=== PATIENT | female | born 1940 | race Caucasian/White ===

== ENCOUNTER 2016-11-09 16:05 | Emergency (ER) | payer MEDICARE ==
[~2016-11-09] VITALS: Ht 165.1 cm; Wt 68.0 kg
[~2016-11-09 16:05] MED LIST: DILA100C PO; HALO0.5T PO; KEPP1000 PO; LEVE750T8 PO; LORA0.5T PO; PHEN100 PO; POLYPOW; SERO100T PO; STOO100T PO; TAB-TAB PO; TRAZ50TA4 PO; VITA500C PO
[2016-11-09 16:08] VITALS: BP 154/72; PULSE 77; RESP 20; TEMP 98.7; O2SAT 95
--- NOTE | 2016-11-09 16:35 | PD ---
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 SENT FOR FURTHER EVALUATION...PER STAFF NO SEIZURE ACTIVITY AND IT WAS A MECHANICAL FALL WITHOUT LOC PFSH Past Medical History Arthritis: No Asthma: No Blood Disorders: No Anxiety: Yes Heart Rhythm Problems: No Cancer: No Cardiovascular Problems: No High Cholesterol: No Chemotherapy: No Chest Pain: No Congestive Heart Failure: No COPD: No Cerebrovascular Accident: No Diabetes: No Diminished Hearing: Yes Endocrine: No Gastrointestinal Disorders: Yes (CHRONIC CONSTIPATION) GERD: No Genitourinary: No Headaches: Yes (ocassionally) Hepatitis: No Hiatal Hernia: No Immune Disorder: No Kidney Stones: No Musculoskeletal: No Neurologic: Yes (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) Psychiatric: Yes (03/25/04-03/25/04,09/23/08-10/01/08, 05/17/09-05/18/09) Reproductive: No Respiratory: Yes Migraines: No Myocardial Infarction: No Pneumonia: Yes Radiation Therapy: No Renal Failure: No Seizures: Yes (history of benign brain tumor) Sleep Apnea: No Ulcer: No Menopausal: Yes : 1 Para: 0 Dilation and Curettage (D&C): Yes Past Surgical History Abdominal Surgery: Yes Appendectomy: Yes Cardiac Surgery: No Cholecystectomy: No Ear Surgery: No Eye Surgery: No Genitourinary Surgery: No Gynecologic Surgery: Yes Oral Surgery: No Thoracic Surgery: No Other Surgery: Yes (REMOVAL BENIGN TUMORS, BREAST) Social History Alcohol Use: No Tobacco Use: No Substance Use: No Allergies-Medications (Allergen,Severity, Reaction): Coded Allergies: *MDRO Multi-Drug Resistant Organism (Unverified Adverse Reaction, Unknown , 11/09/16) MRSA Reported Meds & Prescriptions Reported Meds & Active Scripts Active Reported Gavilax (Polyethylene Glycol 3350) Pow DIRECTED 17GM IN WATER Lorazepam 0.5 Mg Tab 0.5 Mg PO TID Dilantin Kapseals (Phenytoin Sodium) 100 Mg Cap 100 Mg PO BID Keppra (Levetriacetam) 750 Mg Tab 1,500 Mg PO HS Keppra (Levetiracetam) 1,000 Mg Tab 1,000 Mg PO AM PRN Seroquel 100 mg (Quetiapine Fumarate) 100 Mg Tab 100 Mg PO TID Haldol (Haloperidol) 0.5 Mg Tab 0.5 Mg PO TID Trazodone Hcl (Trazodone HCl) 50 Mg Tab 50 Mg PO HS Trazodone Hcl (Trazodone HCl) 50 Mg Tab 50 Mg PO DAILY Dilantin 100 Mg Kapseals (Phenytoin Sodium) 100 Mg Caper 100 Mg PO Q12H Stool Softener-Docusate (Docusate Sodium) Unknown Strength Cap Unknown Dose PO DAILY Vitamin C (Ascorbic Acid) 500 Mg Chw 500 Mg PO DAILY Multivitamin (Multivitamins) 1 Tab Tab 1 Tab PO DAILY Review of Systems Except as stated in HPI: all other systems reviewed are Neg Musculoskeletal: Positive: Pain (RT HUMERUS) Physical Exam Narrative GENERAL: SKIN: Warm and dry. HEAD: Atraumatic. Normocephalic. EYES: Pupils equal and round. No scleral icterus. No injection or drainage. ENT: No nasal bleeding or discharge. Mucous membranes pink and moist. NECK: Trachea midline. No JVD. CARDIOVASCULAR: Regular rate and rhythm. RESPIRATORY: No accessory muscle use. Clear to auscultation. Breath sounds equal bilaterally. GASTROINTESTINAL: Abdomen soft, non-tender, nondistended. Hepatic and splenic margins not palpable. MUSCULOSKELETAL: Extremities without clubbing, cyanosis, or edema. No obvious deformities. TTP AT RIGHT HUMERUS REGION, STRONG PULSES DISTALLY SKIN INTACT NEUROLOGICAL: Awake and PLEASANTLY CONFUSED.... No obvious cranial nerve deficits. Motor grossly within normal limits. Five out of 5 muscle strength in the arms and legs. Normal speech. PSYCHIATRIC: Appropriate mood and affect; insight and judgment normal. Data Data Last Documented VS Vital Signs Date Time Temp Pulse Resp B/P Pulse Ox O2 Delivery O2 Flow Rate FiO2 11/09/16 16:08 98.7 77 20 154/72 95 Room Air Orders Complete Blood Count With Diff (11/09/16 16:24) Basic Metabolic Panel (Bmp) (11/09/16 16:24) Prothrombin Time / Inr (Pt) (11/09/16 16:24) Act Partial Throm Time (Ptt) (11/09/16 16:24) Valproic Acid (Depakene) (11/09/16 16:24) Phenytoin (Dilantin) (11/09/16 16:24) Chest, Single Ap (11/09/16 16:24) Ct Brain W/O Iv Contrast(Rout) (11/09/16 16:24) Pelvis, Ap Only (Routine) (11/09/16 16:24) Humerus (Min 2vws) (11/09/16 ) Morphine Inj (Morphine Inj) (11/09/16 17:15) Phenytoin Inj (Dilantin Inj) (11/09/16 18:00) Splint Or Brace Apply/Monitor (11/09/16 17:46) Ns (Bolus) Inj (11/09/16 18:00) Labs Laboratory Tests Test 11/09/16 16:55 White Blood Count 8.8 TH/MM3 Red Blood Count 3.72 MIL/MM3 Hemoglobin 11.2 GM/DL Hematocrit 33.5 % Mean Corpuscular Volume 89.8 FL Mean Corpuscular Hemoglobin 30.0 PG Mean Corpuscular Hemoglobin 33.4 % Concent Red Cell Distribution Width 14.2 % Platelet Count 311 TH/MM3 Mean Platelet Volume 8.5 FL Neutrophils (%) (Auto) 88.6 % Lymphocytes (%) (Auto) 3.5 % Monocytes (%) (Auto) 7.5 % Eosinophils (%) (Auto) 0.0 % Basophils (%) (Auto) 0.4 % Neutrophils # (Auto) 7.8 TH/MM3 Lymphocytes # (Auto) 0.3 TH/MM3 Monocytes # (Auto) 0.7 TH/MM3 Eosinophils # (Auto) 0.0 TH/MM3 Basophils # (Auto) 0.0 TH/MM3 CBC Comment DIFF FINAL Differential Comment Prothrombin Time 12.0 SEC Prothromb Time International 1.1 RATIO Ratio Activated Partial 24.3 SEC Thromboplast Time Sodium Level 126 MEQ/L Potassium Level 4.2 MEQ/L Chloride Level 91 MEQ/L Carbon Dioxide Level 25.9 MEQ/L Anion Gap 9 MEQ/L Blood Urea Nitrogen 1 MG/DL Creatinine 0.60 MG/DL Estimat Glomerular Filtration 97 ML/MIN Rate Random Glucose 151 MG/DL Calcium Level 8.2 MG/DL Phenytoin (Dilantin) Level 5.7 MCG/ML Valproic Acid (Depakene) Level 60 MCG/ML MDM Medical Decision Making Medical Screen Exam Complete: Yes Emergency Medical Condition: Yes Medical Record Reviewed: Yes Differential Diagnosis ICH V SKULL FX V HUMERUS FX V RIB FX V PELVIC FX V DEPAKOTE/DILANTIN TOXICITY V ELECTROLYTE ABNL Narrative Course PATIENT WAS FOUND TO HAVE A PROXIMAL HUMERAL FX WHICH IS IMPACTED AND WILL NOT REQUIRE SURGICAL REPAIR WILL PLACE IN SLING AND SWATH....SLIGHT SUBTHERAPEUTIC DILANTIN WILL PARTIALLY LOAD IVX1, ALSO FOUND TO HAVE SOME HYPONATREMIA WILL REPLACE WITH NS IVF. PATIENT IS OTHERWISE STABLE AND CAN RETURN TO [facility]ARE. Diagnosis Primary Impression: PROXIMAL HUMERUS FRACTURE (RIGHT) Additional Impressions: MILD NONSYMPTOMATIC HYPONATREMIA S/P REPLACEMENT SUBTHERAPEUTIC DILANTIN S/P PARTIAL LOADING Referrals: Andrew Dotson MD Patient Instructions: General Instructions, Proximal Humerus Fracture (ED) Disposition: 01 DISCHARGE HOME Condition: Stable Kervin Florentino MD Nov 09, 2016 16:35
[2016-11-09] MEDS ORDERED: MORPHINE SULFATE 4 MG/ML INJ IV PUSH ONE (17:15)
[2016-11-09 17:19] LABS: AUTOMATED NEUTROPHIL # 7.8 TH/MM3 (1.8-7.7); BASOPHIL % 0.4 % (0.0-2.0); HEMATOCRIT 33.5 % (35.0-46.0); HEMO FLAGS DIFF FINAL; LYMPH % 3.5 % (9.0-44.0); LYMPHOCYTE # 0.3 TH/MM3 (1.0-4.8); MEAN CELL VOLUME 89.8 FL (80.0-100.0); MEAN CORPUSCULAR HGB CONC 33.4 % (32.0-36.0); MONO % 7.5 % (0.0-8.0); NEUT % 88.6 % (16.0-70.0); PLATELET COUNT 311 TH/MM3 (150-450); RED BLOOD COUNT 3.72 MIL/MM3 (4.00-5.30); RED CELL DISTRIBUTION WIDTH 14.2 % (11.6-17.2); WHITE BLOOD COUNT 8.8 TH/MM3 (4.0-11.0)
[2016-11-09 17:27] LABS: APTT (PATIENT) 24.3 SEC (24.3-30.1); INTERNATIONAL NORMALIZED RATIO 1.1 RATIO
--- NOTE | 2016-11-09 17:45 | RADRPT ---
EXAM DATE/TIME: 11/09/2016 17:21 [facility] COMPARISON: No previous studies available for comparison. INDICATIONS : Fall, complains of right shoulder pain. MEDICAL HISTORY : None. SURGICAL HISTORY : None. ENCOUNTER: Initial ACUITY: 1 day PAIN SCORE: 10/10 LOCATION: Right humerus FINDINGS: There is a fracture of the proximal humerus at the surgical neck. The shaft is medially mildly displa jacklyn. The glenohumeral joint is normally aligned. CONCLUSION: Right proximal humeral fracture. Eddie Ruffin MD on November 09, 2016 at 17:42 Board Certified Radiologist. This report was verified electronically.
--- NOTE | 2016-11-09 17:47 | RADRPT ---
EXAM DATE/TIME: 11/09/2016 17:24 [facility] COMPARISON: CHEST SINGLE AP, May 06, 2014, 5:41. INDICATIONS : Fall MEDICAL HISTORY : None. SURGICAL HISTORY : None. ENCOUNTER: Initial ACUITY: 1 day PAIN SCORE: 10/10 LOCATION: Bilateral chest FINDINGS: The heart size is enlarged. There are calcified granulomas in the right upper lung. Lungs appear othe rwise grossly clear There is dense calcification seen over the right base likely related to pleural c alcifications. There is minimal blunting of the costophrenic angles. Small effusions cannot be exclud ed. There is a fracture at the proximal right humeral shaft at the surgical neck. CONCLUSION: 1. Cardiomegaly. 2. No acute cardiopulmonary process. 3. Right proximal humeral fracture. Eddie Ruffin MD on November 09, 2016 at 17:43 Board Certified Radiologist. This report was verified electronically.
[2016-11-09 17:50] LABS: BICARBONATE 25.9 MEQ/L (21.0-32.0); POTASSIUM 4.2 MEQ/L (3.5-5.1)
[2016-11-09] MEDS ORDERED: PHENYTOIN INJ 250 MG/5 ML VIAL IV ONE (18:00)
[2016-11-09] MEDS ORDERED: SODIUM CHLORID 0.9% 500 ML INJ 500 ML IV ONE (18:00)
[2016-11-09] MEDS ORDERED: SODIUM CHLOR 0.9% 1000 ML INJ 1,000 ML IV ONE (18:00)
--- NOTE | 2016-11-09 18:00 | RADRPT ---
EXAM DATE/TIME: 11/09/2016 17:19 [facility] COMPARISON: PELVIS AP ONLY, January 14, 2015, 15:28. INDICATIONS : Fall MEDICAL HISTORY : None. SURGICAL HISTORY : None. ENCOUNTER: Initial ACUITY: 1 day PAIN SCORE: 10/10 LOCATION: pelvis FINDINGS: A single frontal view of the pelvis demonstrates no evidence of fracture. The bony pelvic ring is in tact. Bony mineralization is normal. The soft tissues are intact. Calcified fibroid on the right, s table CONCLUSION: 1. No acute findings on pelvis radiograph. Tarik Rutledge MD on November 09, 2016 at 17:56 Board Certified Radiologist. This report was verified electronically.
--- NOTE | 2016-11-09 18:05 | RADRPT ---
EXAM DATE/TIME: 11/09/2016 17:34 [facility] COMPARISON: CT BRAIN W/O CONTRAST, March 15, 2014, 16:00. CT BRAIN W/O CONTRAST, May 10, 2013, 17:28. CT BRAIN W/O CONTRAST, May 06, 2014, 6:21. CT BRAIN W/O CONTRAST, May 09, 2014, 15:09. CT BR AIN W/O CONTRAST, January 14, 2015, 15:56. INDICATIONS : Trauma. Fall. Right sided head contusion. RADIATION DOSE: 32.88 CTDIvol (mGy) MEDICAL HISTORY : Seizures. Benign brain tumor. SURGICAL HISTORY : None. ENCOUNTER: Initial ACUITY: 1 day PAIN SCALE: 7/10 LOCATION: Right cranial TECHNIQUE: Multiple contiguous axial images were obtained of the head. Using automated exposure control and adj ustment of the mA and/or kV according to patient size, radiation dose was kept as low as reasonably a chievable to obtain optimal diagnostic quality images. DICOM format image data is available electro nically for review and comparison. FINDINGS: CEREBRUM: There continue to be multiple calcified masses seen. The largest area seen in the posterior medial ri ght parietal lobe measuring 2.2 cm. There is a 1.7 cm calcified mass of the posterior right temporal lobe, a 0.6 cm calcified mass in the medial right frontal lobe, a 0.5 cm calcified area in the left o ccipital lobe, and some punctate calcifications in the left paraventricular region. There is persiste nt encephalomalacia at the left frontal lobe and anterior left temporal lobe. The ventricles and michael ical sulci are widened. The ventricles appear widened at proportion to the sulcal widening. No evid ence of midline shift, mass lesion, hemorrhage or acute infarction. No extra-axial fluid collections are seen. POSTERIOR FOSSA: The cerebellum and brainstem are intact. The 4th ventricle is midline. The cerebellopontine angle i s unremarkable. EXTRACRANIAL: The visualized portion of the orbits is intact. SKULL: The calvaria is intact. No evidence of acute skull fracture. There is evidence of a prior fracture a t the right occipital bone. Is present on multiple prior CT examinations. CONCLUSION: 1. No acute intracranial abnormality. 2. Atrophy. The ventricles are dilated out of proportion to the sulcal widening which can suggest nor mal pressure hydrocephalus in the correct clinical situation. 3. Persistent numerous calcified masses without edema. These are unchanged in size or number. 4. Areas of encephalomalacia that were seen previously in the left frontal and left temporal lobes. Eddie Ruffin MD on November 09, 2016 at 17:56 Board Certified Radiologist. This report was verified electronically.
[2016-11-09 19:16] VITALS: BP 127/65; PULSE 78; RESP 16; O2SAT 96
[2016-11-09] MEDS ORDERED: VITA250T3 PO (19:51)
[2016-11-09] MEDS ORDERED: DIPH25CA PO (19:51)
[2016-11-09] MEDS ORDERED: DIVA250T3 PO (19:51)
[2016-11-09] MEDS ORDERED: SERO25TA PO (19:51)
[2016-11-09] MEDS ORDERED: LEVE500 PO (19:51)
[2016-11-09] MEDS ORDERED: FURO1TAB62 PO (19:51)
[2016-11-09] MEDS ORDERED: MELAPOW2 (19:51)
[2016-11-09] MEDS ORDERED: MULT1TAB46 PO (19:51)
[2016-11-09] MEDS ORDERED: CLAR10CA3 PO (19:51)
[2016-11-09] MEDS ORDERED: MIRA3350 PO (19:51)
[2016-11-09] MEDS ORDERED: SERO100T PO (19:51)
[2016-11-09] MEDS ORDERED: LORA-474 PO (19:51)
[2016-11-09] MEDS ORDERED: SODI1TAB PO (19:51)
[2016-11-09] MEDS ORDERED: DOCU-44 PO (19:51)
[2016-11-09] MEDS ORDERED: DILA100C PO (19:51)
== END 2016-11-09 21:05 | disposition home or self-care (01) ==
LOC: NEPC 16:05
DX: S42.201A Unspecified fracture of upper end of right humerus, initial encounter for closed fracture (principal)
CPT/HCPCS: 70450; 71010; 72170; 73060; 80048; 80164; 80185; 85025; 85610; 85730; 96374; 96375; 99285; J1165; J2270; J7030; J7040

== ENCOUNTER 2017-02-18 15:29 | Emergency (ER) | payer MEDICARE ==
[~2017-02-18] VITALS: Ht 162.6 cm; Wt 70.0 kg
[~2017-02-18 15:29] MED LIST changes: +CLAR10CA3 PO; +DIPH25CA PO; +DIVA250T3 PO; +DOCU-44 PO; +FURO1TAB62 PO; -HALO0.5T PO; -KEPP1000 PO; +LEVE500 PO; -LEVE750T8 PO; +LORA-474 PO; -LORA0.5T PO; +MELAPOW2; +MIRA3350 PO; +MULT1TAB46 PO; -PHEN100 PO; -POLYPOW; +SERO25TA PO; +SODI1TAB PO; -STOO100T PO; -TAB-TAB PO; -TRAZ50TA4 PO; +VITA250T3 PO; -VITA500C PO
[2017-02-18 15:35] VITALS: BP 119/64; PULSE 88; RESP 15; TEMP 97.8; O2SAT 94
[2017-02-18] MEDS ORDERED: HYDR-3516 PO (17:53)
[2017-02-18] MEDS ORDERED: RISP.25 PO (17:53)
--- NOTE | 2017-02-18 18:16 | PD ---
Physical Exam Date Seen by Provider: Feb 18, 2017 Narrative This patient presents for evaluation following a fall with a blow to her head. This patient is not able to give much history. Her pcb design engineer reports that she has a history of Alzheimer's as well as a seizure disorder. Per their protocol , she has to be evaluated following any sort of head trauma. The pcb design engineer does not believe that she is on an anticoagulant. Data Data Last Documented VS Vital Signs Date Time Temp Pulse Resp B/P (MAP) Pulse Ox O2 Delivery O2 Flow Rate FiO2 02/18/17 15:35 97.8 88 15 119/64 (82) [address] Brain W/O Iv Contrast(Rout) (02/18/17 ) Hip, Uni(Ap&Lat) W Ap Pelvis (02/18/17 ) Us Leg Venous Doppler (02/18/17 ) MDM Supervised Visit with GONZÁLEZ: Yes Narrative Course I, Dr. Lyles, have reviewed the advance practice practitioner's documentation and am in agreement, met with the patient face to face, made the diagnosis, and the medical decision making was done by me. *My assessment and Findings: Pleasantly demented elderly woman who has a hematoma on the left side of her forehead. She does not have any apparent C- spine tenderness. Please see Minnie Mederos NP's note for results of laboratory and radiographic evaluation, ED course, final diagnosis and disposition Zohra Lyles MD Feb 18, 2017 18:16
--- NOTE | 2017-02-18 18:46 | RADRPT ---
EXAM DATE/TIME: 02/18/2017 18:13 [facility] COMPARISON: No previous studies available for comparison. INDICATIONS : Patient complains of left hip pain status post fall today. MEDICAL HISTORY : None. SURGICAL HISTORY : None. ENCOUNTER: Initial ACUITY: 1 day PAIN SCORE: 2/10 LOCATION: Left Hip FINDINGS: Examination of the left hip was performed with AP Pelvis. The primary and secondary trabecular patte rn of the femoral neck is intact. The hip joint is of normal width without significant sclerosis or bony hypertrophy. The acetabulum is grossly intact. Calcifications are seen in the pelvis likely rel ated to calcified leiomyomas and scattered phleboliths. Degenerative change is seen in the lower lumb ar spine. CONCLUSION: No acute disease. Eddie Ruffin MD on February 18, 2017 at 18:44 Board Certified Radiologist. This report was verified electronically.
--- NOTE | 2017-02-18 19:19 | RADRPT ---
EXAM DATE/TIME: 02/18/2017 18:14 [facility] COMPARISON: No previous studies available for comparison. INDICATIONS : Right leg swelling. MEDICAL HISTORY : Seizures. Hypertension. Hearing loss. Glasses. Dentures. Pnemonia. Chronic constipation. Anxiety. SURGICAL HISTORY : Appendectomy. Dilation and curretage. Removal of benign tumors, breast. ENCOUNTER: Initial ACUITY: 3 days PAIN SCORE: 4/10 LOCATION: Right leg. TECHNIQUE: Venous ultrasound of the leg was performed from the inguinal ligament to the proximal calf. Real-chelo e, color Doppler and spectral tracing, compression and augmentation techniques were used. FINDINGS: There is normal compressibility of the deep venous system from the inguinal region to the proximal ca lf. No echogenic clot is seen in the lumen of the common femoral, femoral, popliteal, and posterior tibial veins. There is a normal response of the venous system to proximal and distal augmentation an d respiration. There is superficial edema. CONCLUSION: No DVT is seen. Eddie Ruffin MD on February 18, 2017 at 19:17 Board Certified Radiologist. This report was verified electronically.
--- NOTE | 2017-02-18 19:22 | PD ---
HPI Chief Complaint: Fall Time Seen by Provider: 17:23 Travel History International Travel<30 days: No Contact w/Intl Traveler<30days: No Traveled to known affect area: No History of Present Illness HPI 76-year-old female sent here from the correction after she sustained a fall from a standing position after tripping. The fall was witnessed. There was no loss of consciousness. Patient is not anticoagulated. Patient has history of dementia and is a poor historian although she follows commands and reports that she does not have any pain. She denies headache, neck pain, chest pain, shortness of breath, abdominal pain. Her caregivers at the bedside. She reports the patient is mentating at her abdominal level. PFSH Past Medical History Arthritis: No Asthma: No Blood Disorders: No Anxiety: Yes Heart Rhythm Problems: No Cancer: No Cardiovascular Problems: No High Cholesterol: No Chemotherapy: No Chest Pain: No Congestive Heart Failure: No COPD: No Cerebrovascular Accident: No Diabetes: No Diminished Hearing: Yes Endocrine: No Gastrointestinal Disorders: Yes (CHRONIC CONSTIPATION) GERD: No Genitourinary: No Headaches: Yes (ocassionally) Hepatitis: No Hiatal Hernia: No Immune Disorder: No Kidney Stones: No Musculoskeletal: No Neurologic: Yes (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) Psychiatric: Yes (03/25/04-03/25/04,09/23/08-10/01/08, 05/17/09-05/18/09) Reproductive: No Respiratory: Yes Migraines: No Myocardial Infarction: No Pneumonia: Yes Radiation Therapy: No Renal Failure: No Seizures: Yes (history of benign brain tumor) Sleep Apnea: No Ulcer: No ?: Not Menopausal: Yes : 1 Para: 0 Dilation and Curettage (D&C): Yes Past Surgical History Abdominal Surgery: Yes Appendectomy: Yes Cardiac Surgery: No Cholecystectomy: No Ear Surgery: No Eye Surgery: No Genitourinary Surgery: No Gynecologic Surgery: Yes Oral Surgery: No Thoracic Surgery: No Other Surgery: Yes (REMOVAL BENIGN TUMORS, BREAST) Social History Alcohol Use: No Tobacco Use: No Substance Use: No Allergies-Medications (Allergen,Severity, Reaction): Coded Allergies: *MDRO Multi-Drug Resistant Organism (Unverified Adverse Reaction, Unknown , 02/18/17) MRSA Reported Meds & Prescriptions Reported Meds & Active Scripts Active Reported Risperdal (Risperidone) 0.25 Mg Tab 0.25 Mg PO Q12HR Hydrocodone-Acetaminophen 5-325 mg Tab 1 Tab PO BID Melatonin (Melatonin (Bulk)) 1 Pow Pow 10 Mg HS Diphenhydramine (Diphenhydramine HCl) 25 Mg Cap 50 Mg PO HS PRN Ativan (Lorazepam) 1 Mg Tab 1 Mg PO Q8H PRN Keppra (Levetiracetam) 500 Mg Tab 500 Mg PO TID Divalproex ER (Divalproex Sodium) 250 Mg Miguel 250 Mg PO TID Seroquel (Quetiapine Fumarate) 100 Mg Tab 100 Mg PO HS Dilantin (Phenytoin Extended) 100 Mg Cap 100 Mg PO BID Vitamin C (Ascorbic Acid) 250 Mg Tab 500 Mg PO Sodium Chloride 1 Gm Tab 1 Gm PO DAILY Seroquel (Quetiapine Fumarate) 25 Mg Tab 25 Mg PO HS Miralax Powder (Polyethylene Glycol 3350 Powder) 17 Gm Powd 17 Gm PO DAILY Mix and dissolve one measuring cap-ful (17 grams) in water or juice. Powell Stool Softener (Docusate Sodium) 100 Mg Cap 1 Caplet PO DAILY Multi Vitamin Daily (Multiple Vitamin) 1 Tab Tab 1 Tab PO DAILY Claritin (Loratadine) 10 Mg Cap 10 Mg PO DAILY Lasix (Furosemide) 20 Mg Tab 20 Mg PO DAILY Review of Systems Except as stated in HPI: all other systems reviewed are Neg Physical Exam Narrative GENERAL: Alert elderly female resting comfortably on stretcher SKIN: Focused skin assessment warm/dry. Small area of ecchymosis noted to the left lateral hip HEAD: Normocephalic. Ecchymosis noted to the left forehead and brow EYES: Pupils equal and round. No scleral icterus. No injection or drainage. EOMs intact ENT: No nasal bleeding or discharge. Mucous membranes pink and moist. NECK: Trachea midline. No JVD. No cervical midline tenderness. CARDIOVASCULAR: Regular rate and rhythm. No murmur appreciated. RESPIRATORY: No accessory muscle use. Clear to auscultation. Breath sounds equal bilaterally. GASTROINTESTINAL: Abdomen soft, non-tender, nondistended. Hepatic and splenic margins not palpable. MUSCULOSKELETAL: No obvious deformities. No clubbing. No cyanosis. Right lower extremity: Notable swelling, erythema, 2+ pitting edema. 2+ distal pulses. No posterior calf pain. Caregiver reports this leg is chronically swollen although appears more swollen today NEUROLOGICAL: Awake and alert. No obvious cranial nerve deficits. Motor grossly within normal limits. Normal speech. PSYCHIATRIC: Appropriate mood and affect; insight and judgment normal. Data Data Last Documented VS Vital Signs Date Time Temp Pulse Resp B/P (MAP) Pulse Ox O2 Delivery O2 Flow Rate FiO2 02/18/17 15:35 97.8 88 15 119/64 (82) [address] Brain W/O Iv Contrast(Rout) (02/18/17 ) Hip, Uni(Ap&Lat) W Ap Pelvis (02/18/17 ) Us Leg Venous Doppler (02/18/17 ) MDM Medical Decision Making Medical Screen Exam Complete: Yes Emergency Medical Condition: Yes Differential Diagnosis Facial contusions, ICH, left hip fracture, DVT, venous stasis Narrative Course 76-year-old female with history of dementia who lives in a correction fell from a standing position hitting her head. The fall was witnessed there was no loss of consciousness. Patient is not anticoagulated. She is mentating at her normal level per her caregiver. She has small amount of ecchymosis to the left forehead and eyebrow. Is also noted that she has small area of ecchymosis to left lateral hip. Patient denies any pain. Caregiver was concerned that her right leg appeared more swollen than normal. CT of the brain X-ray left hip: Negative for fracture Ultrasound right leg: Negative for DVT Diagnosis Primary Impression: Contusion Qualified Codes: S00.93XA - Contusion of unspecified part of head, initial encounter Additional Impressions: Contusion of left hip Qualified Codes: S70.02XA - Contusion of left hip, initial encounter Lower extremity edema Referrals: Primary Care Physician Additional Instructions: Take Tylenol as needed for pain. Follow-up the primary care doctor. Return to emergency department if he developed new or worsening symptoms. Disposition: 01 DISCHARGE HOME Condition: Stable Minnie Mederos Feb 18, 2017 19:22
--- NOTE | 2017-02-18 21:11 | RADRPT ---
EXAM DATE/TIME: 02/18/2017 18:42 [facility] COMPARISON: CT BRAIN W/O CONTRAST, May 09, 2014, 15:09. CT BRAIN W/O CONTRAST, November 09, 2016, 17:34. INDICATIONS : Head pain due to fall. RADIATION DOSE: 56.35 CTDIvol (mGy) MEDICAL HISTORY : Seizures. Hypertension. SURGICAL HISTORY : Appendectomy. ENCOUNTER: Initial ACUITY: 1 day PAIN SCALE: 2/10 LOCATION: Bilateral cranial TECHNIQUE: Multiple contiguous axial images were obtained of the head. Using automated exposure control and adjustment of the mA and/or kV according to patient size, radiation dose was kept as low as reasonably achievable to obtain optimal diagnostic quality images. DICOM format image data is av ailable electronically for review and comparison. FINDINGS: The ventricles and cortical sulci are widened. The ventricles are widened somewhat out of proportion to the sulcal widening. Again noted are multiple calcified masses. T he largest mass i s seen in the superior medial right parietal lobe and measures 2.4 cm. There are calcified areas see n in the anterior inferior right frontal lobe, left frontal lobe adjacent to the anterior left latera l ventricle body, right posterior temporal lobe, left posterior temporal lobe, and left occipital lob e. These were all present previously. Significant surrounding edema is not seen. The patient does h ave an area of encephalomalacia involving the left frontal lobe. Areas of acute hemorrhage, mass eff ect or infarction are not seen. The posterior fossa structures appear grossly intact. The patient does have focal soft-tissue swelling at the left frontal scalp region. No acute bone inj ury is seen. CONCLUSION: 1. No acute intracranial abnormality is seen. 2. Multiple calcified masses seen throughout the brain bilaterally without mass effect. These are unc hanged. 3. Area of encephalomalacia in the left frontal lobe. This is stable. 4. Focal acute soft-tissue swelling in the left frontal scalp region. Eddie Ruffin MD on February 18, 2017 at 19:55 Board Certified Radiologist. This report was verified electronically.
--- NOTE | 2017-02-18 21:19 | PD ---
Physical Exam Date Seen by Provider: Feb 18, 2017 Time Seen by Provider: 21:17 Data Data Last Documented VS Vital Signs Date Time Temp Pulse Resp B/P (MAP) Pulse Ox O2 Delivery O2 Flow Rate FiO2 02/18/17 15:35 97.8 88 15 119/64 (82) [address] Brain W/O Iv Contrast(Rout) (02/18/17 ) Hip, Uni(Ap&Lat) W Ap Pelvis (02/18/17 ) Us Leg Venous Doppler (02/18/17 ) MDM Medical Record Reviewed: Yes Supervised Visit with GONZÁLEZ: Yes Interpretation(s) CT brain: Negative for acute intercranial pathology Last 24 hours Impressions Lower Extremity Ultrasound 02/18/17 0000 Signed Impressions: Service Date/Time: Saturday, February 18, 2017 18:14 - CONCLUSION: No DVT is seen. Eddie Ruffin MD Hip and Pelvis X-Ray 02/18/17 0000 Signed Impressions: Service Date/Time: Saturday, February 18, 2017 18:13 - CONCLUSION: No acute disease. Eddie Ruffin MD Diagnosis Primary Impression: Contusion Qualified Codes: S00.93XA - Contusion of unspecified part of head, initial encounter Additional Impressions: Lower extremity edema Contusion of left hip Qualified Codes: S70.02XA - Contusion of left hip, initial encounter Referrals: Primary Care Physician Patient Instructions: General Instructions Additional Instruction: Take Tylenol as needed for pain. Follow-up the primary care doctor. Return to emergency department if he developed new or worsening symptoms. Disposition: 01 DISCHARGE HOME Condition: Stable Tarik Ospina Feb 18, 2017 21:19
== END 2017-02-18 21:50 | disposition home or self-care (01) ==
LOC: NEPD 15:29
DX: S00.93XA Contusion of unspecified part of head, initial encounter (principal); S70.02XA Contusion of left hip, initial encounter; G40.909 Epilepsy, unspecified, not intractable, without status epilepticus; G30.9 Alzheimer's disease, unspecified; F02.80 Dementia in other diseases classified elsewhere, unspecified severity, without behavioral disturbance, psychotic disturbance, mood disturbance, and anxiety; W01.0XXA Fall on same level from slipping, tripping and stumbling without subsequent striking against object, initial encounter; F41.9 Anxiety disorder, unspecified; Z79.899 Other long term (current) drug therapy
CPT/HCPCS: 70450; 73502; 93971

== ENCOUNTER 2017-03-27 19:30 | Emergency (ER) | payer MEDICARE ==
[~2017-03-27] VITALS: Ht 167.6 cm; Wt 70.0 kg
[~2017-03-27 19:30] MED LIST changes: +HYDR-3516 PO; +RISP.25 PO
[2017-03-27 19:39] VITALS: BP 146/64; PULSE 83; RESP 16; TEMP 98.7; O2SAT 100
[2017-03-27] MEDS ORDERED: LIDOCAINE 1%/EPINEPHrine 1:100,000 SOLN 20 ML VIAL INFIL ONE (19:45)
--- NOTE | 2017-03-27 20:29 | RADRPT ---
EXAM DATE/TIME: 03/27/2017 19:57 [facility] COMPARISON: CT BRAIN W/O CONTRAST, February 18, 2017, 18:42. INDICATIONS : Trauma, fall. Laceration to posterior head. RADIATION DOSE: 56.35 CTDIvol (mGy) MEDICAL HISTORY : Hypertension. Seizures. Benign brain tumor. SURGICAL HISTORY : Appendectomy. ENCOUNTER: Initial ACUITY: 1 day PAIN SCALE: 4/10 LOCATION: cranial TECHNIQUE: Multiple contiguous axial images were obtained of the head. Using automated exposure control and adj ustment of the mA and/or kV according to patient size, radiation dose was kept as low as reasonably a chievable to obtain optimal diagnostic quality images. DICOM format image data is available electro nically for review and comparison. FINDINGS: CEREBRUM: Calcifications are again seen in the right frontal region, left temporal region,, right temporal, rig ht parietal, and left occipital regions. Encephalomalacia of the left frontal lobe again seen. Promin ence of the ventricles diffusely again seen. No significant interval change in any of these findings. No evidence of acute intracranial hemorrhage or extra axial fluid collection. No mass effect or midl ine shift. Zuniga matter-white matter differentiation within normal limits. POSTERIOR FOSSA: The cerebellum and brainstem are intact. The 4th ventricle is midline. The cerebellopontine angle i s unremarkable. EXTRACRANIAL: The visualized portion of the orbits is intact. SKULL: The calvaria is intact. No evidence of skull fracture. CONCLUSION: No significant interval change. Multiple calcifications or calcified masses are unchanged. Left front al encephalomalacia unchanged. No acute findings. Asad Luque MD on March 27, 2017 at 20:24 Board Certified Radiologist. This report was verified electronically.
--- NOTE | 2017-03-27 20:34 | RADRPT ---
EXAM DATE/TIME: 03/27/2017 19:57 [facility] COMPARISON: CT CERVICAL SPINE W/O CONTRAST, January 14, 2015, 15:56. INDICATIONS : Trauma, fall. Laceration to posterior head. RADIATION DOSE: 33.24 CTDIvol (mGy) MEDICAL HISTORY : Seizures. Hypertension. Benign brain tumor. SURGICAL HISTORY : Appendectomy. ENCOUNTER: Initial ACUITY: 1 day PAIN SCALE: 2/10 LOCATION: neck TECHNIQUE: Volumetric scanning of the cervical spine was performed. Multiplanar reconstructions in the sagittal, coronal and oblique axial planes were performed. Using automated exposure control and adjustment o f the mA and/or kV according to patient size, radiation dose was kept as low as reasonably achievable to obtain optimal diagnostic quality images. DICOM format image data is available electronically f or review and comparison. FINDINGS: Alignment within normal limits. No evidence of fracture. Severe multilevel degenerative findings are again seen with broad-based disc osteophyte complexes at every level along with facet arthrosis at ev benedict level. No significant interval change from 01/14/2015. Mild central canal narrowing at C2-3 and C3- 4 CONCLUSION: No evidence of fracture. Severe multilevel degenerative findings unchanged. Asad Luque MD on March 27, 2017 at 20:27 Board Certified Radiologist. This report was verified electronically.
--- NOTE | 2017-03-27 20:50 | PD ---
HPI Chief Complaint: Fall Time Seen by Provider: 19:37 Travel History International Travel<30 days: No Contact w/Intl Traveler<30days: No Traveled to known affect area: No History of Present Illness HPI 77 yo F arrives by EMS after a fall. Pt was getting up from a seated position and fell striking the occipital scalp causing causing bleeding and pain. Bleeding improved en route. No numbness weakness. Timing sudden. Location generalized and scalp/occipital head. No complaint in ER. PFSH Past Medical History Arthritis: No Asthma: No Blood Disorders: No Anxiety: Yes Heart Rhythm Problems: No Cancer: No Cardiovascular Problems: No High Cholesterol: No Chemotherapy: No Chest Pain: No Congestive Heart Failure: No COPD: No Cerebrovascular Accident: No Diabetes: No Diminished Hearing: Yes Endocrine: No Gastrointestinal Disorders: Yes (CHRONIC CONSTIPATION) GERD: No Genitourinary: No Headaches: Yes (ocassionally) Hepatitis: No Hiatal Hernia: No Immune Disorder: No Kidney Stones: No Musculoskeletal: No Neurologic: Yes (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) Psychiatric: Yes (03/25/04-03/25/04,09/23/08-10/01/08, 05/17/09-05/18/09) Reproductive: No Respiratory: Yes Migraines: No Myocardial Infarction: No Pneumonia: Yes Radiation Therapy: No Renal Failure: No Seizures: Yes (history of benign brain tumor) Sleep Apnea: No Ulcer: No Tetanus Vaccination: < 5 Years Influenza Vaccination: Yes Menopausal: Yes : 1 Para: 0 Dilation and Curettage (D&C): Yes Past Surgical History Abdominal Surgery: Yes Appendectomy: Yes Cardiac Surgery: No Cholecystectomy: No Ear Surgery: No Eye Surgery: No Genitourinary Surgery: No Gynecologic Surgery: Yes Oral Surgery: No Thoracic Surgery: No Other Surgery: Yes (REMOVAL BENIGN TUMORS, BREAST) Social History Alcohol Use: No Tobacco Use: No Substance Use: No Allergies-Medications (Allergen,Severity, Reaction): Coded Allergies: *MDRO Multi-Drug Resistant Organism (Unverified Adverse Reaction, Unknown , 03/27/17) MRSA Reported Meds & Prescriptions Reported Meds & Active Scripts Active Reported Risperdal (Risperidone) 0.25 Mg Tab 0.25 Mg PO Q12HR Hydrocodone-Acetaminophen 5-325 mg Tab 1 Tab PO BID Melatonin (Melatonin (Bulk)) 1 Pow Pow 10 Mg HS Diphenhydramine (Diphenhydramine HCl) 25 Mg Cap 50 Mg PO HS PRN Ativan (Lorazepam) 1 Mg Tab 1 Mg PO Q8H PRN Keppra (Levetiracetam) 500 Mg Tab 500 Mg PO TID Divalproex ER (Divalproex Sodium) 250 Mg Miguel 250 Mg PO TID Seroquel (Quetiapine Fumarate) 100 Mg Tab 100 Mg PO HS Dilantin (Phenytoin Extended) 100 Mg Cap 100 Mg PO BID Vitamin C (Ascorbic Acid) 250 Mg Tab 500 Mg PO Sodium Chloride 1 Gm Tab 1 Gm PO DAILY Seroquel (Quetiapine Fumarate) 25 Mg Tab 25 Mg PO HS Miralax Powder (Polyethylene Glycol 3350 Powder) 17 Gm Powd 17 Gm PO DAILY Mix and dissolve one measuring cap-ful (17 grams) in water or juice. Andre Stool Softener (Docusate Sodium) 100 Mg Cap 1 Caplet PO DAILY Multi Vitamin Daily (Multiple Vitamin) 1 Tab Tab 1 Tab PO DAILY Claritin (Loratadine) 10 Mg Cap 10 Mg PO DAILY Lasix (Furosemide) 20 Mg Tab 20 Mg PO DAILY Review of Systems Except as stated in HPI: all other systems reviewed are Neg General / Constitutional: No: Fever Physical Exam Narrative GENERAL: 77 yo F, pleasant, NAD, speaking sentences SKIN: Warm and dry. HEAD: Atraumatic. Normocephalic. 4 cm linear laceration L occipital scalp with dry blood. EYES: Pupils equal and round. No scleral icterus. No injection or drainage. ENT: No nasal bleeding or discharge. Mucous membranes pink and moist. NECK: Trachea midline. No JVD. No focal c-spine tenderness. Normal ROM. CARDIOVASCULAR: Regular rate and rhythm. RESPIRATORY: No accessory muscle use. Clear to auscultation. Breath sounds equal bilaterally. GASTROINTESTINAL: Abdomen soft, non-tender, nondistended. Hepatic and splenic margins not palpable. MUSCULOSKELETAL: Extremities without clubbing, cyanosis, or edema. No obvious deformities. Pelvis stable/non-tender. NEUROLOGICAL: Awake and alert. No obvious cranial nerve deficits. Motor grossly within normal limits. Five out of 5 muscle strength in the arms and legs. Normal speech. PSYCHIATRIC: Appropriate mood and affect; insight and judgment normal. Data Data Last Documented VS Vital Signs Date Time Temp Pulse Resp B/P (MAP) Pulse Ox O2 Delivery O2 Flow Rate FiO2 03/27/17 19:39 98.7 83 16 146/64 (91) 100 Vs reviewed Orders Orders Ct Brain W/O Iv Contrast(Rout) (03/27/17 19:41) Ct Cerv Spine W/O Contrast (03/27/17 19:41) Lidocai-Epi 1%-1:100,000 Inj (Xylocaine- (03/27/17 19:45) MDM Medical Decision Making Medical Screen Exam Complete: Yes Emergency Medical Condition: Yes Differential Diagnosis ICH, scalp contusion, laceration Narrative Course Patient had a mechanical fall. She lacerated the occipital scalp causing some bleeding. The laceration was repaired here. The head CT and C-spine CT are normal. Patient will return in 10 days for suture removal. Diagnosis Primary Impression: Fall Qualified Codes: W19.XXXA - Unspecified fall, initial encounter Additional Impression: Occipital scalp laceration Qualified Codes: S01.01XA - Laceration without foreign body of scalp, initial encounter Referrals: RETURN IN 10 DAYS FOR STAPLE REMOVAL Disposition: DISCHARGE HOME Condition: Stable Juan Miguel Robertson MD Mar 27, 2017 20:50
== END 2017-03-27 21:43 | disposition home or self-care (01) ==
LOC: NEPC 19:30
DX: S01.01XA Laceration without foreign body of scalp, initial encounter (principal); F41.9 Anxiety disorder, unspecified; G40.909 Epilepsy, unspecified, not intractable, without status epilepticus; W18.00XA Striking against unspecified object with subsequent fall, initial encounter; Z79.899 Other long term (current) drug therapy
CPT/HCPCS: 12002; 70450; 72125

== ENCOUNTER 2017-04-10 18:29 | Emergency (ER) | payer MEDICARE ==
[~2017-04-10] VITALS: Ht 162.6 cm; Wt 70.0 kg
[2017-04-10 18:42] VITALS: BP 135/82; PULSE 91; RESP 18; TEMP 98.5; O2SAT 96
[2017-04-10] MEDS ORDERED: DEPA500T PO (19:01)
[2017-04-10] MEDS ORDERED: AUGM875T3 PO (19:01)
--- NOTE | 2017-04-10 19:04 | PD ---
HPI Chief Complaint: Fall Time Seen by Provider: 18:57 Travel History International Travel<30 days: No Contact w/Intl Traveler<30days: No Traveled to known affect area: No History of Present Illness HPI 77-year-old female sent here from her SNF for evaluation after a fall. The patient has had several falls over the past couple of days. Today while in the dining acosta she fell out of her chair. Patient reports that she struck the back of her head on the ground. She denies LOC. She denies any symptoms. No head neck or back pain. No upper or lower extremity pain. No chest pain or dyspnea. No abdominal pain. PFSH Past Medical History Arthritis: No Asthma: No Blood Disorders: No Anxiety: Yes Heart Rhythm Problems: No Cancer: No Cardiovascular Problems: No High Cholesterol: No Chemotherapy: No Chest Pain: No Congestive Heart Failure: No COPD: No Cerebrovascular Accident: No Dementia: Yes Diabetes: No Diminished Hearing: Yes Endocrine: No Gastrointestinal Disorders: Yes (CHRONIC CONSTIPATION) GERD: No Genitourinary: No Headaches: Yes (ocassionally) Hepatitis: No Hiatal Hernia: No Immune Disorder: No Kidney Stones: No Musculoskeletal: No Neurologic: Yes (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) Psychiatric: Yes (03/25/04-03/25/04,09/23/08-10/01/08, 05/17/09-05/18/09) Reproductive: No Respiratory: Yes Migraines: No Myocardial Infarction: No Pneumonia: Yes Radiation Therapy: No Renal Failure: No Seizures: Yes (history of benign brain tumor) Sleep Apnea: No Ulcer: No Menopausal: Yes : 1 Para: 0 Dilation and Curettage (D&C): Yes Past Surgical History Abdominal Surgery: Yes Appendectomy: Yes Cardiac Surgery: No Cholecystectomy: No Ear Surgery: No Eye Surgery: No Genitourinary Surgery: No Gynecologic Surgery: Yes Oral Surgery: No Thoracic Surgery: No Other Surgery: Yes (REMOVAL BENIGN TUMORS, BREAST) Social History Alcohol Use: No Tobacco Use: No Substance Use: No Allergies-Medications (Allergen,Severity, Reaction): Coded Allergies: *MDRO Multi-Drug Resistant Organism (Verified Adverse Reaction, Unknown, 04/10/17) MRSA Reported Meds & Prescriptions Reported Meds & Active Scripts Active Reported Augmentin (Amoxicillin-Clavulanate) 875-125 Mg Tab 1 Tab PO BID Depakote DR (Divalproex Sodium) 500 Mg Tabdr 500 Mg PO BID Risperdal (Risperidone) 0.25 Mg Tab 0.25 Mg PO Q12HR Hydrocodone-Acetaminophen 5-325 mg Tab 1 Tab PO BID Melatonin (Melatonin (Bulk)) 1 Pow Pow 10 Mg HS Ativan (Lorazepam) 1 Mg Tab 1 Mg PO Q8H PRN Keppra (Levetiracetam) 500 Mg Tab 500 Mg PO TID Seroquel (Quetiapine Fumarate) 100 Mg Tab 100 Mg PO HS Dilantin (Phenytoin Extended) 100 Mg Cap 100 Mg PO BID Sodium Chloride 1 Gm Tab 1 Gm PO DAILY Seroquel (Quetiapine Fumarate) 25 Mg Tab 25 Mg PO HS Miralax Powder (Polyethylene Glycol 3350 Powder) 17 Gm Powd 17 Gm PO DAILY Mix and dissolve one measuring cap-ful (17 grams) in water or juice. Andre Stool Softener (Docusate Sodium) 100 Mg Cap 1 Caplet PO DAILY Multi Vitamin Daily (Multiple Vitamin) 1 Tab Tab 1 Tab PO DAILY Claritin (Loratadine) 10 Mg Cap 10 Mg PO DAILY Lasix (Furosemide) 20 Mg Tab 20 Mg PO DAILY Review of Systems Except as stated in HPI: all other systems reviewed are Neg Physical Exam Narrative GENERAL: Well-developed, well-nourished, awake, alert, GCS 15, no apparent distress. SKIN: Focused skin assessment warm/dry. No lacerations, abrasions, or ecchymosis. HEAD: Small posterior scalp hematoma. Normocephalic. EYES: Pupils equal, round, 3 mm, reactive to light. No scleral icterus. No injection or drainage. ENT: No nasal bleeding or discharge. Mucous membranes pink and moist. NECK: Trachea midline. No JVD. No midline cervical spine step-off or tenderness. CARDIOVASCULAR: Regular rate and rhythm. RESPIRATORY: No accessory muscle use. Clear to auscultation. Breath sounds equal bilaterally. GASTROINTESTINAL: Abdomen soft, non-tender, nondistended. MUSCULOSKELETAL: No obvious deformities. No clubbing. No cyanosis. Moderate bilateral lower extremity edema. Normal range of motion in all joints and extremities without deformity and without tenderness. NEUROLOGICAL: Awake and alert. No obvious cranial nerve deficits. Motor grossly within normal limits. Normal speech. PSYCHIATRIC: Appropriate mood and affect; insight and judgment normal. Data Data Last Documented VS Vital Signs Date Time Temp Pulse Resp B/P (MAP) Pulse Ox O2 Delivery O2 Flow Rate FiO2 04/10/17 19:11 87 18 120/58 (78) 95 Room Air 04/10/17 18:[address] Brain W/O Iv Contrast(Rout) (04/10/17 ) Ct Cerv Spine W/O Contrast (04/10/17 ) MDM Medical Decision Making Medical Screen Exam Complete: Yes Emergency Medical Condition: Yes Medical Record Reviewed: Yes Differential Diagnosis Mechanical fall, intracranial trauma, cervical spine injury Narrative Course Vital signs are within normal limits. CT head: Chronic changes, no acute abnormalities. CT cervical spine: Intact cervical spine, multilevel degenerative changes. Patient was made aware of CT findings. She is stable for discharge back to her SNF with PMD follow-up this week. Diagnosis Primary Impression: Fall Qualified Codes: W19.XXXA - Unspecified fall, initial encounter Additional Impression: Closed head injury Qualified Codes: S09.90XA - Unspecified injury of head, initial encounter Referrals: Primary Care Physician 3 days Additional Instructions: Follow-up with your primary care physician this week. Return to the emergency department for worsening symptoms or any other concerns. Disposition: 03 DISCHARGE TO SNF Condition: Stable Nando Shirley MD Apr 10, 2017 19:04
[2017-04-10 19:11] VITALS: BP 120/58; PULSE 87; RESP 18; O2SAT 95
--- NOTE | 2017-04-10 19:53 | RADRPT ---
EXAM DATE/TIME: 04/10/2017 19:24 [facility] COMPARISON: CT BRAIN W/O CONTRAST, March 27, 2017, 19:57. INDICATIONS : Trauma; fall. RADIATION DOSE: 33.67 CTDIvol (mGy) MEDICAL HISTORY : Dementia. Seizures. Hypertension. SURGICAL HISTORY : Appendectomy. ENCOUNTER: Initial ACUITY: 3 days PAIN SCALE: Non-responsive LOCATION: cranial TECHNIQUE: Multiple contiguous axial images were obtained of the head. Using automated exposure control and adj ustment of the mA and/or kV according to patient size, radiation dose was kept as low as reasonably a chievable to obtain optimal diagnostic quality images. DICOM format image data is available electro nically for review and comparison. FINDINGS: No intracranial hemorrhage or hematoma. No mass effect or midline shift. Mild to moderate ventriculom egaly is unchanged. There is a calcification of the right parietal lobe are stable. There is an area of old encephalomala alfie of the left frontal lobe, unchanged. Skull is intact. CONCLUSION: Chronic findings as above. No bleed or other acute intracranial abnormality. Eddie Vega MD on April 10, 2017 at 19:49 Board Certified Radiologist. This report was verified electronically.
--- NOTE | 2017-04-10 19:56 | RADRPT ---
EXAM DATE/TIME: 04/10/2017 19:24 [facility] COMPARISON: CT CERVICAL SPINE W/O CONTRAST, March 27, 2017, 19:57. INDICATIONS : Trauma; falls. RADIATION DOSE: 20.25 CTDIvol (mGy) MEDICAL HISTORY : Dementia. Seizures. Hypertension. SURGICAL HISTORY : Appendectomy. ENCOUNTER: Initial ACUITY: 3 days PAIN SCALE: Non-responsive LOCATION: neck TECHNIQUE: Volumetric scanning of the cervical spine was performed. Multiplanar reconstructions in the sagittal, coronal and oblique axial planes were performed. Using automated exposure control and adjustment o f the mA and/or kV according to patient size, radiation dose was kept as low as reasonably achievable to obtain optimal diagnostic quality images. DICOM format image data is available electronically f or review and comparison. FINDINGS: No fracture or subluxation of the cervical spine. Vertebral bodies have normal height. Mild, degenera tive kyphosis again noted centered around C5. Paravertebral soft tissues are within normal limits. Moderate to severe disc space narrowing with mild to moderate uncovertebral and facet osteoarthritis seen at each level, C3/C4-C6/C7. CONCLUSION: Intact cervical spine. Multilevel degenerative changes again noted as above. Eddie Vega MD on April 10, 2017 at 19:52 Board Certified Radiologist. This report was verified electronically.
== END 2017-04-10 21:37 ==
LOC: NEPC 18:29
DX: Z04.1 Encounter for examination and observation following transport accident (principal); F41.9 Anxiety disorder, unspecified; F03.90 Unspecified dementia, unspecified severity, without behavioral disturbance, psychotic disturbance, mood disturbance, and anxiety; G40.909 Epilepsy, unspecified, not intractable, without status epilepticus; Z79.899 Other long term (current) drug therapy
CPT/HCPCS: 70450; 72125; 99285